=== PATIENT | male | born 1960 | race Caucasian/White ===

== ENCOUNTER 2017-01-30 18:20 | Emergency (ER) | payer BC, OTHER ==
[2017-01-30 18:25] VITALS: BP 124/83
--- NOTE | 2017-01-30 19:30 | RADIOLOGY REPORT (SQ) ---
EXAM DESCRIPTION: ELBOW RIGHT OVER 2 VIEWS COMPLETED DATE/TIME: 01/30/2017 7:18 pm REASON FOR STUDY: pain and swelling COMPARISON: None. NUMBER OF VIEWS: Four views. TECHNIQUE: AP, lateral, and both oblique radiographic images acquired of the right elbow. LIMITATIONS: None. FINDINGS: MINERALIZATION: Normal. BONES: No acute fracture or dislocation. No worrisome bone lesions. JOINT: No effusion. SOFT TISSUES: No soft tissue swelling. No foreign body. OTHER: No other significant finding. IMPRESSION: NEGATIVE STUDY OF THE RIGHT ELBOW. NO RADIOGRAPHIC EVIDENCE OF ACUTE INJURY. TECHNICAL DOCUMENTATION: JOB ID: [id number] [employer]- All Rights Reserved
[2017-01-30] MEDS ORDERED: CLINDAMYCIN HCL 150 MG CAPSULE PO ONE (19:43)
--- NOTE | 2017-01-30 19:51 | ER Document Report ---
ED Extremity Problem, Upper - General Chief Complaint: Elbow Injury Stated Complaint: ELBOW PAIN Time Seen by Provider: 01/30/17 18:47 TRAVEL OUTSIDE OF THE [place] 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 - Related Data Allergies/Adverse Reactions: No Known Allergies Allergy (Unverified 01/30/17 18:25) Past Medical History - Social History Smoking Status: Unknown if Ever Smoked Chew tobacco use (# tins/day): No Frequency of alcohol use: None Drug Abuse: None Family History: Reviewed & Not Pertinent - Past Medical History Cardiac Medical History: Reports: Hx Atrial Fibrillation Pulmonary Medical History: Reports: Hx COPD Renal/ Medical History: Denies: Hx Peritoneal Dialysis Past Surgical History: Reports: Hx Appendectomy, Hx Orthopedic Surgery - right elbow Review of Systems - Review of Systems Constitutional: No symptoms reported Musculoskeletal: See HPI Skin: See HPI -: Yes All other systems reviewed and negative Physical Exam - Vital signs Vitals: Temp Pulse Resp BP Pulse Ox 98.4 F 71 16 124/83 95 01/30/17 18:24 01/30/17 18:24 01/30/17 18:24 01/30/17 18:24 01/30/17 18:24 - General General appearance: Appears well, Alert In distress: None - Cardiovascular Pulses: Normal: Radial Normal capillary refill: Yes - Extremities Arm: Normal, Nontender Elbow: Nontender, Abrasion, Swollen bursa - right elbow. No: Deformity, Dislocation, Ecchymosis, Instability, Joint effusion, Laceration, Limited ROM Forearm: Normal, Nontender - Skin Skin Temperature: Warm Skin Moisture: Dry Skin Color: Erythema - overlying bursa of the right elbow Course - Re-evaluation Re-evalutation: 01/30/17 21:24 Patient is a 56-year-old male is hemodynamic stable, no acute distress afebrile. Presentation today is consistent with bursitis. Given overlying abrasion and erythema will treat with clindamycin and sent aspirate from bursa for culture. Patient educated on signs and symptoms to be aware of indicating return to the emergency department. Patient agrees with plan. Stable for discharge home - Vital Signs Vital signs: Temp Pulse Resp BP Pulse Ox 98.4 F 71 16 124/83 95 01/30/17 18:24 01/30/17 18:24 01/30/17 18:24 01/30/17 18:24 01/30/17 18:24 - Diagnostic Test Radiology reviewed: Image reviewed, Reports reviewed Discharge - Discharge Clinical Impression: Bursitis Qualifiers: Bursitis location: elbow Elbow bursitis location: olecranon bursitis Laterality : right Qualified Code(s): M70.21 - Olecranon bursitis, right elbow Condition: Good Disposition: HOME, SELF-CARE Instructions: Olecranon Bursitis ([facility]) Additional Instructions: Please follow-up with your primary care provider at the end of this coming week for a recheck of your bursitis. Please return to the emergency department with any worsening redness, swelling and inability to move the joint, fever Prescriptions: Clindamycin HCl 450 mg PO TID 7 Days capsule
== END 2017-01-30 20:04 | disposition home or self-care (01) ==
LOC: ER 18:20
DX: M70.21 Olecranon bursitis, right elbow (principal); M79.89 Other specified soft tissue disorders; M25.521 Pain in right elbow
CPT/HCPCS: 87070; 87075; 87077; 87186; 87205; 99283

== ENCOUNTER 2017-03-28 07:40 | Emergency (ER) | payer OTHER, BC ==
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
[2017-03-28 07:49] VITALS: BP 149/90
== END 2017-03-28 08:20 | disposition home or self-care (01) ==
LOC: ER 07:40
DX: S16.1XXA Strain of muscle, fascia and tendon at neck level, initial encounter (principal); M54.2 Cervicalgia; R51 Headache; M25.561 Pain in right knee; V87.7XXA Person injured in collision between other specified motor vehicles (traffic), initial encounter
CPT/HCPCS: 99283

== ENCOUNTER 2017-05-21 06:13 | Emergency (ER) | payer BC, OTHER ==
[2017-05-21 06:56] LABS: ABSOLUTE BASOPHILS # (AUTO) 0.1 10^3/uL (0.0-0.2); ABSOLUTE EOSINOPHILS # (AUTO) 0.2 10^3/uL (0.0-0.6); ABSOLUTE LYMPHOCYTES (AUTO) 1.3 10^3/uL (0.5-4.7); ABSOLUTE MONOCYTES (AUTO) 0.5 10^3/uL (0.1-1.4); ABSOLUTE NEUT (AUTO) 4.6 10^3/uL (1.7-8.2); BASOPHILS % (AUTO) 0.9 % (0-2); EOSINOPHILS % (AUTO) 2.3 % (0-6); HEMOGLOBIN 16.3 g/dL (13.5-17.0); LYMPHOCYTES % (AUTO) 19.4 % (13-45); MEAN CORPUSCULAR HEMOGLOBIN 29.1 pg (27.0-33.4); MEAN CORPUSCULAR HGB CONC 34.1 g/dL (32.0-36.0); MEAN CORPUSCULAR VOLUME 85 fl (80-97); PLATELET COUNT 234 10^3/uL (150-450); RED BLOOD COUNT 5.62 10^6/uL (4.35-5.55); SEGMENTED NEUTROPHILS % (AUTO) 69.4 % (42-78); TOTAL CELLS COUNTED % (AUTO) 100 %; WHITE BLOOD COUNT 6.7 10^3/uL (4.0-10.5)
--- NOTE | 2017-05-21 07:07 | ER Document Report ---
ED General - General Mode of Arrival: Ambulatory Information source: Patient TRAVEL OUTSIDE OF THE [place] IN LAST 30 DAYS: No <CAROLYNN LEDESMA - Last Filed: 05/21/17 07:45> <STEVIE LUCERO - Last Filed: 05/21/17 11:15> <LINDA RICHARDS - Last Filed: 05/21/17 16:29> - General Chief Complaint: Abdominal Pain Stated Complaint: ABDOMINAL PAIN Time Seen by Provider: 05/21/17 06:54 Notes: Patient is a 56 year old male with a history of diverticulosis, Afib, and COPD presents to the emergency department complaining of abdominal pain onset 2 days ago. Patient states when he came home from work 2 days ago he was constipated and noticed blood streaks in the toilet. Patients associated symptoms include diaphoresis, vomiting x1 onset last night, and chills. Patient is currently on Multaq. (CAROLYNN LEDESMA) - Related Data Allergies/Adverse Reactions: No Known Allergies Allergy (Verified 05/21/17 06:13) Past Medical History - General Information source: Patient - Social History Smoking Status: Former Smoker Cigarette use (# per day): No Chew tobacco use (# tins/day): No Smoking Education Provided: No Frequency of alcohol use: None Drug Abuse: Marijuana Family History: Reviewed & Not Pertinent Patient has suicidal ideation: No Patient has homicidal ideation: No - Past Medical History Cardiac Medical History: Reports: Hx Atrial Fibrillation Pulmonary Medical History: Reports: Hx COPD Past Surgical History: Reports: Hx Appendectomy, Hx Orthopedic Surgery - right elbow <CAROLYNN LEDESMA - Last Filed: 05/21/17 07:45> Review of Systems - Review of Systems Constitutional: See HPI, Chills, Diaphoresis EENT: No symptoms reported Cardiovascular: No symptoms reported Respiratory: No symptoms reported Gastrointestinal: See HPI, Abdominal pain, Vomiting, Constipation Genitourinary: No symptoms reported Male Genitourinary: No symptoms reported Musculoskeletal: No symptoms reported Skin: No symptoms reported Hematologic/Lymphatic: No symptoms reported -: Yes All other systems reviewed and negative <CAROLYNN LEDESMA - Last Filed: 05/21/17 07:45> Physical Exam <CAROLYNN LEDESMA - Last Filed: 05/21/17 07:45> <STEVIE LUCERO - Last Filed: 05/21/17 11:15> <LINDA RICHARDS - Last Filed: 05/21/17 16:29> - Vital signs Vitals: Temp Pulse Resp BP Pulse Ox 98.0 F 80 18 125/94 H 96 05/21/17 06:13 05/21/17 06:13 05/21/17 06:13 05/21/17 06:13 05/21/17 06:13 - Notes Notes: GENERAL: Alert, interacts well. No acute distress. HEAD: Normocephalic, atraumatic. EYES: Pupils equal, round, and reactive to light. Extraocular movements intact. ENT: Oral mucosa moist, tongue midline. NECK: Full range of motion. Supple. Trachea midline. LUNGS: Clear to auscultation bilaterally, no wheezes, rales, or rhonchi. No respiratory distress. HEART: Regular rate and rhythm. No murmurs, gallops, or rubs. ABDOMEN: Soft, LLQ and RLQ moderately tender to palpatio, no guarding, rigidity or rebound. Non-distended. Bowel sounds present in all 4 quadrants. EXTREMITIES: Moves all 4 extremities spontaneously. NEUROLOGICAL: Alert and oriented x3. Normal speech. PSYCH: Normal affect, normal mood. SKIN: Warm, dry, normal turgor. No rashes or lesions noted. RECTAL: No hemorrhoids, no gross amount of blood. Liquid like light brown stool. (CAROLYNN LEDESMA) Course - Laboratory Result Diagrams: 05/21/17 06:40 05/21/17 06:40 <CAROLYNN LEDESMA - Last Filed: 05/21/17 07:45> - Laboratory Result Diagrams: 05/21/17 06:40 05/21/17 06:40 <STEVIE LUCERO - Last Filed: 05/21/17 11:15> - Laboratory Result Diagrams: 05/21/17 06:40 05/21/17 06:40 <LINDA RICHARDS - Last Filed: 05/21/17 16:29> - Re-evaluation Re-evalutation: 05/21/17 16:28 CBC unremarkable, chemistries grossly unremarkable, no leukocytosis, urinalysis grossly unremarkable, CT scan shows bowel wall thickening associated with sigmoid diverticulosis, no obvious diverticulitis. I had to leave the care of this patient in the middle of the workup, patient was graciously taken over by Stevie Harris, started antibiotics on this patient as he does have a history of diverticulitis, there is some bowel wall thickening and he is symptomatic. Patient was given antibiotics and discharged to home. (LINDA RICHARDS) - Vital Signs Vital signs: Temp Pulse Resp BP Pulse Ox 98.0 F 70 18 125/75 100 05/21/17 12:24 05/21/17 12:24 05/21/17 12:24 05/21/17 12:24 05/21/17 12:24 - Laboratory Laboratory results interpreted by me: 05/21/17 05/21/17 06:40 06:40 RBC 5.62 H Total Protein 6.1 L Discharge <CAROLYNN LEDESMA - Last Filed: 05/21/17 07:45> <STEVIE LUCERO - Last Filed: 05/21/17 11:15> <LINDA RICHARDS - Last Filed: 05/21/17 16:29> - Discharge Clinical Impression: Diverticulitis Diverticulosis Qualifiers: Diverticulosis site: diverticulosis of large intestine Diverticulosis bleeding : diverticulosis without bleeding Qualified Code(s): K57.30 - Diverticulosis of large intestine without perforation or abscess without bleeding Disposition: HOME, SELF-CARE Instructions: Diverticulitis ([facility]) Additional Instructions: Diverticulitis You have been diagnosed as having diverticulitis. This is an inflammation of a small pouch attached to the colon, called a diverticulum. Many of these small pouches can form on the colon as you get older. They are often caused by constipation. When inflamed or infected, symptoms arise -- usually abdominal pain, constipation or diarrhea, fever, and blood in the stool. Severe diverticulitis may require hospitalization. More mild cases are usually treated with antibiotics and clear liquid diet. As you improve, a diet low in residue (one which forms little stool) is prescribed. When you are better, you should eat a high-fiber diet. Stool softeners ( like Metamucil) are usually recommended. Call the doctor or go to the hospital if there is increasing pain, vomiting , high fever, large amounts of blood passed, or if bowel movements cease. Antibiotics with food, eat yogurt daily to prevent loose stool or take probiotics. advised to return to the ER if any signs or symptoms became worse. Take [id number] Motrin and Tylenol as needed for any fevers or pain. Follow up with primary care within 1-2 days. All questions and concerns answered by this provider. Patient/family states would follow plan of care and agreed to plan of care. Patient was discharged home and off unit without incident. Please excuse any errors in this document was done by dragon dictation. Prescriptions: Ciprofloxacin HCl [Cipro 500 mg Tablet] 500 mg PO BID #20 tablet Metronidazole [Flagyl 500 mg Tablet] 500 mg PO TID 10 Days #30 tablet Scribe Attestation: 05/21/17 16:29 I personally performed the services described in the documentation, reviewed and edited the documentation which was dictated to the scribe in my presence, and it accurately records my words and actions. (LINDA RICHARDS) Scribe Documentation - Scribe Written by Sarthak:: Sarthak Araya, 05/21/2017 07:44 acting as scribe for :: Tao <CAROLYNN LEDESMA - Last Filed: 05/21/17 07:45>
[2017-05-21 07:28] LABS: ALANINE AMINOTRANSFERASE 30 U/L (21-72); ALBUMIN 3.7 g/dL (3.5-5.0); ALKALINE PHOSPHATASE 57 U/L (38-126); ANION GAP 8 (5-19); ASPARTATE AMINO TRANSFERASE 21 U/L (17-59); BILIRUBIN,DIRECT 0.2 mg/dL (0.0-0.4); BILIRUBIN,TOTAL 0.4 mg/dL (0.2-1.3); BLOOD UREA NITROGEN 19 mg/dL (7-20); CALCIUM 9.8 mg/dL (8.4-10.2); CARBON DIOXIDE 25 mmol/L (22-30); CHLORIDE 107 mmol/L (98-107); GLUCOSE 110 mg/dL (75-110); LIPASE 273.2 U/L (23-300); POTASSIUM 4.5 mmol/L (3.6-5.0); SODIUM 140.4 mmol/L (137-145); TOTAL PROTEIN 6.1 g/dL (6.3-8.2)
[2017-05-21 08:28] LABS: AMORPHOUS SEDIMENT,URINE 1+ /HPF; APPEARANCE,URINE TURBID; BILIRUBIN,URINE NEGATIVE (NEGATIVE); COLOR,URINE YELLOW; GLUCOSE, URINE NEGATIVE (NEGATIVE); KETONES,URINE NEGATIVE (NEGATIVE); LEUKOCYTE ESTERASE,URINE NEGATIVE (NEGATIVE); NITRITE,URINE NEGATIVE (NEGATIVE); PROTEIN,URINE NEGATIVE (NEGATIVE); URINE SPECIFIC GRAVITY 1.023; UROBILINOGEN,URINE NEGATIVE mg/dL (<2.0)
--- NOTE | 2017-05-21 10:44 | RADIOLOGY REPORT (SQ) ---
EXAM DESCRIPTION: CT ABD/PELVIS WITH IV ORAL COMPLETED DATE/TIME: 05/21/2017 10:13 am REASON FOR STUDY: LLQ and RLQ pain, h/o perf'd diverticulitis COMPARISON: None. TECHNIQUE: CT scan of the abdomen and pelvis performed with intravenous and oral contrast using wilner maxx scanning technique with dynamic intravenous contrast injection. Images reviewed with lung, soft t issue, and bone windows. Reconstructed coronal and sagittal MPR images reviewed. Delayed images for e valuation of the urinary system also acquired. All images stored on PACS. All CT scanners at this facility use dose modulation, iterative reconstruction, and/or weight based d osing when appropriate to reduce radiation dose to as low as reasonably achievable (ALARA). [facility]: Dose Right [facility]: CareDose [facility]: Dose Right [facility]: Teradose 4D [facility]: [employer] CONTRAST TYPE AND DOSE: contrast/concentration: Isovue 370.00 mg/ml; Total Contrast Delivered: 89.0 ml; Total Saline Delivered: 70.0 ml RENAL FUNCTION: Not recorded by technologist. RADIATION DOSE: CT Rad equipment meets quality standard of care and radiation dose reduction techniq ues were employed. CTDIvol: 8.9 - 13.4 mGy. DLP: 1142 mGy-cm. . LIMITATIONS: None. FINDINGS: LOWER CHEST: No significant findings. No nodules or infiltrates. LIVER: Normal size. No masses. No dilated ducts. SPLEEN: Normal size. No focal lesions. PANCREAS: No masses. No significant calcifications. No adjacent inflammation or peripancreatic fluid collections. Pancreatic duct not dilated. GALLBLADDER: No identified stones by CT criteria. No inflammatory changes to suggest cholecystitis. ADRENAL GLANDS: No significant masses or asymmetry. RIGHT KIDNEY AND URETER: No solid masses. No significant calcifications. No hydronephrosis or hyd roureter. LEFT KIDNEY AND URETER: No solid masses. No significant calcifications. No hydronephrosis or hydr oureter. AORTA AND VESSELS: No aneurysm. No dissection. Renal arteries, SMA, celiac without stenosis. RETROPERITONEUM: No retroperitoneal adenopathy, hemorrhage or masses. BOWEL AND PERITONEAL CAVITY: Bowel wall thickening sigmoid colon. Multiple sigmoid diverticula. No inflammatory changes. No ascites or free air. APPENDIX: Surgically absent. PELVIS: No significant masses. Normal bladder. No free fluid. ABDOMINAL WALL: No masses. No hernias. BONES: No significant or acute findings. OTHER: No other significant finding. IMPRESSION: Bowel wall thickening associated with sigmoid diverticulosis. No obvious diverticulitis . TECHNICAL DOCUMENTATION: JOB ID: [id number] Quality ID # [id number]: Final reports with documentation of one or more dose reduction techniques (e.g., Au tomated exposure control, adjustment of the mA and/or kV according to patient size, use of iterative reconstruction technique) 2010 [employer]- All Rights Reserved
[2017-05-21 12:25] VITALS: BP 125/75
== END 2017-05-21 12:25 | disposition home or self-care (01) ==
LOC: ER 06:13
DX: K57.30 Diverticulosis of large intestine without perforation or abscess without bleeding (principal); K57.92 Diverticulitis of intestine, part unspecified, without perforation or abscess without bleeding; R10.9 Unspecified abdominal pain; I48.91 Unspecified atrial fibrillation; J44.9 Chronic obstructive pulmonary disease, unspecified; K59.00 Constipation, unspecified; Z87.891 Personal history of nicotine dependence
CPT/HCPCS: 36415; 74177; 80053; 81001; 82272; 83690; 85025; 99284

== ENCOUNTER 2018-01-29 16:00 | Emergency (ER) | payer BC, OTHER ==
[2018-01-29] MEDS ORDERED: DILTIAZEM HCL INJ 25 MG/5 ML VIAL IV ONE (16:35)
--- NOTE | 2018-01-29 16:35 | ER Document Report ---
ED Medical Screen (RME) - General Chief Complaint: Chest Pain Stated Complaint: HEARTRATE ISSUE, CHEST PAIN, SOB Time Seen by Provider: 01/29/18 16:34 Notes: 57-year-old male to the emergency department for evaluation of tachycardia. Patient has had a history of atrial fibrillation recently. Was started on Multitak and aspirin. Not on any blood thinners. 2 hours ago felt his heart began to flutter. Decided to come here. Has had this happen several times and was able to be converted in the emergency department with medications. Some shortness of breath and some anxiety at this time I have greeted and performed a rapid initial assessment of this patient. A comprehensive ED assessment and evaluation of the patient, analysis of test results and completion of the medical decision making process will be conducted by additional ED providers. TRAVEL OUTSIDE OF THE [place] IN LAST 30 DAYS: No - Related Data Allergies/Adverse Reactions: No Known Allergies Allergy (Verified 01/29/18 16:03) Past Medical History - Past Medical History Cardiac Medical History: Reports: Hx Atrial Fibrillation Pulmonary Medical History: Reports: Hx COPD Renal/ Medical History: Denies: Hx Peritoneal Dialysis Past Surgical History: Reports: Hx Appendectomy, Hx Orthopedic Surgery - right elbow Physical Exam - Vital signs Vitals: Temp Pulse Resp BP Pulse Ox 97.4 F 80 18 114/79 98 01/29/18 16:15 01/29/18 16:15 01/29/18 16:15 01/29/18 16:15 01/29/18 16:15 Course - Vital Signs Vital signs: Temp Pulse Resp BP Pulse Ox 97.4 F 80 18 114/79 98 01/29/18 16:15 01/29/18 16:15 01/29/18 16:15 01/29/18 16:15 01/29/18 16:15
[2018-01-29 17:05] LABS: ABSOLUTE BASOPHILS # (AUTO) 0.1 10^3/uL (0.0-0.2); ABSOLUTE EOSINOPHILS # (AUTO) 0.1 10^3/uL (0.0-0.6); ABSOLUTE LYMPHOCYTES (AUTO) 1.8 10^3/uL (0.5-4.7); ABSOLUTE MONOCYTES (AUTO) 0.5 10^3/uL (0.1-1.4); ABSOLUTE NEUT (AUTO) 4.9 10^3/uL (1.7-8.2); BASOPHILS % (AUTO) 0.7 % (0-2); EOSINOPHILS % (AUTO) 1.8 % (0-6); HEMATOCRIT 46.2 % (37.9-51.0); LYMPHOCYTES % (AUTO) 24.4 % (13-45); MEAN CORPUSCULAR HEMOGLOBIN 29.3 pg (27.0-33.4); MEAN CORPUSCULAR HGB CONC 34.6 g/dL (32.0-36.0); MEAN CORPUSCULAR VOLUME 85 fl (80-97); MONOCYTES % (AUTO) 6.8 % (3-13); PLATELET COUNT 243 10^3/uL (150-450); RED BLOOD COUNT 5.44 10^6/uL (4.35-5.55); RED CELL DISTRIBUTION WIDTH 13.9 % (11.5-14.0); SEGMENTED NEUTROPHILS % (AUTO) 66.3 % (42-78); TOTAL CELLS COUNTED % (AUTO) 100 %; WHITE BLOOD COUNT 7.4 10^3/uL (4.0-10.5)
[2018-01-29] MEDS ORDERED: DILTIAZEM HCL/D5W 125 MG/125 ML RTUINJ IV PRN (17:31)
--- NOTE | 2018-01-29 17:31 | ER Document Report ---
ED General - General Chief Complaint: Chest Pain Stated Complaint: HEARTRATE ISSUE, CHEST PAIN, SOB Time Seen by Provider: 01/29/18 16:34 Mode of Arrival: Ambulatory Information source: Patient Notes: 57-year-old man with a history of A. fib presents to the emergency room with palpitations and lightheadedness consistent with A. fib. He states that most of the time is in a sinus rhythm. He does take Dronedarone for rhythm recall control. He is on daily aspirin. His other medicines and gabapentin, Nexium. TRAVEL OUTSIDE OF THE [place] IN LAST 30 DAYS: No - HPI Onset: Just prior to arrival Onset/Duration: Sudden Quality of pain: No pain Severity: None Pain Level: Denies Associated symptoms: denies: Chest pain, Shortness of breath Exacerbated by: Denies Relieved by: Denies Similar symptoms previously: Yes Recently seen / treated by doctor: No - Related Data Allergies/Adverse Reactions: No Known Allergies Allergy (Verified 01/29/18 16:03) Past Medical History - General Information source: Patient - Social History Smoking Status: Never Smoker Cigarette use (# per day): No Chew tobacco use (# tins/day): No Frequency of alcohol use: None Lives with: Family Family History: Reviewed & Not Pertinent Patient has suicidal ideation: No Patient has homicidal ideation: No - Past Medical History Cardiac Medical History: Reports: Hx Atrial Fibrillation Pulmonary Medical History: Reports: Hx COPD Neurological Medical History: Reports: None Endocrine Medical History: Reports: None Renal/ Medical History: Reports: None. Denies: Hx Peritoneal Dialysis Malignancy Medical History: Reports None GI Medical History: Reports: None Musculoskeletal Medical History: Reports None Skin Medical History: Reports None Psychiatric Medical History: Reports: None Traumatic Medical History: Reports: None Infectious Medical History: Reports: None Past Surgical History: Reports: Hx Appendectomy, Hx Orthopedic Surgery - right elbow Review of Systems - Review of Systems Constitutional: denies: Chills, Fever EENT: No symptoms reported Cardiovascular: See HPI Respiratory: No symptoms reported Gastrointestinal: No symptoms reported Genitourinary: No symptoms reported Male Genitourinary: No symptoms reported Musculoskeletal: No symptoms reported Skin: No symptoms reported Hematologic/Lymphatic: No symptoms reported Neurological/Psychological: No symptoms reported Physical Exam - Vital signs Vitals: Temp Pulse Resp BP Pulse Ox 97.4 F 80 18 114/79 98 01/29/18 16:15 09/22/18 16:15 01/29/18 16:15 01/29/18 16:15 01/29/18 16:15 Notes: Physical exam: GENERAL: The 57-year-old man, alert and oriented 3, no acute distress. HEAD: Atraumatic, normocephalic. EYES: Pupils equal round and reactive to light, extraocular movements intact, sclera anicteric, conjunctiva are normal. ENT: TMs normal, nares patent, oropharynx clear without exudates. Moist mucous membranes. NECK: Normal range of motion, supple without obvious mass or JVD. LUNGS: Breath sounds clear to auscultation bilaterally and equal. No wheezes rales or rhonchi. HEART: Tachycardic, irregularly irregular ABDOMEN: Soft, normoactive bowel sounds. No tenderness to palpation. No guarding, no rebound. No masses appreciated. EXTREMITIES: Normal range of motion, no pitting or edema. No clubbing or cyanosis. NEUROLOGICAL: Cranial nerves II through XII grossly intact. Normal speech, moving all extremities. PSYCH: Normal mood, normal affect. SKIN: Warm, Dry, normal turgor, no rashes or lesions noted. Course - Re-evaluation Re-evalutation: 01/30/18 00:29 Patient was treated with IV Cardizem, IV Cardizem drip. He did have spontaneous conversion to normal sinus rhythm while in the. Patient was asymptomatic. Repeat EKG showed sinus rhythm with a ventricular rate of 65 and a normal QTc corrected interval. Patient was discharged home and advised to follow-up with his ticker wirer and continue current medicines. - Vital Signs Vital signs: Temp Pulse Resp BP Pulse Ox 97.4 F 80 21 H 110/72 98 01/29/18 16:15 01/29/18 16:15 01/29/18 20:31 01/29/18 20:31 01/29/18 20:31 - Laboratory Result Diagrams: 01/29/18 16:55 01/29/18 16:55 Laboratory results interpreted by me: 01/29/18 16:55 Chloride 113 H Carbon Dioxide 21 L BUN 25 H Glucose 132 H Direct Bilirubin 0.5 H - EKG Interpretation by Me Rhythm: A.Fib - A. fib with a rapid ventricular rate, QTC 502. Repeat EKG showing normal sinus rhythm with a ventricular rate of 65 with a normal QTc interval Discharge - Discharge Clinical Impression: Atrial fibrillation with rapid ventricul Condition: Stable Disposition: HOME, SELF-CARE Additional Instructions: As we discussed, you did convert into normal sinus rhythm. I recommend you follow-up with your ticker wirer. Bring a copy of today's labs with you when you go to that appointment. Continue your current medicines. Return to the emergency room for any chest pain, shortness of breath, worsening palpitations or any concerns or getting worse.
[2018-01-29 17:40] LABS: ALANINE AMINOTRANSFERASE 29 U/L (21-72); ALBUMIN 3.8 g/dL (3.5-5.0); ALKALINE PHOSPHATASE 53 U/L (38-126); ANION GAP 7 (5-19); ASPARTATE AMINO TRANSFERASE 23 U/L (17-59); BILIRUBIN,DIRECT 0.5 mg/dL (0.0-0.4); BILIRUBIN,TOTAL 0.7 mg/dL (0.2-1.3); BLOOD UREA NITROGEN 25 mg/dL (7-20); CALCIUM 9.3 mg/dL (8.4-10.2); CARBON DIOXIDE 21 mmol/L (22-30); CHLORIDE 113 mmol/L (98-107); GLUCOSE 132 mg/dL (75-110); POTASSIUM 3.9 mmol/L (3.6-5.0); SODIUM 141.2 mmol/L (137-145); TOTAL PROTEIN 6.7 g/dL (6.3-8.2)
[2018-01-29] MEDS ORDERED: NORMAL SALINE 1000 ML 1,000 ML IV ONE (20:00)
--- NOTE | 2018-01-29 20:05 | EKG REPORT ---
SEVERITY:- ABNORMAL ECG - ATRIAL FIBRILLATION, V-RATE 92-174 PROLONGED QT INTERVAL : Confirmed by: Jayla Santana MD 29-Jan-2018 20:04:37
[2018-01-29] MEDS ORDERED: POTASSIUM CHLORIDE 10 MEQ CAPSULE.ER PO ONE (20:08)
[2018-01-29 20:54] VITALS: BP 110/72
--- NOTE | 2018-01-30 14:32 | EKG REPORT ---
SEVERITY:- NORMAL ECG - SINUS RHYTHM : Confirmed by: Jayla Santana MD 30-Jan-2018 14:31:51
== END 2018-01-29 20:39 | disposition home or self-care (01) ==
LOC: ER 16:00
DX: I48.91 Unspecified atrial fibrillation (principal)
CPT/HCPCS: 93005; 99285; 96374; 36415; 83735; 85025; 80053; 84484; 93010; J3490

== ENCOUNTER 2018-07-01 10:00 | Emergency (ER) | payer BC ==
[2018-07-01] MEDS ORDERED: NORMAL SALINE 1000 ML 1,000 ML IV ONE (10:31)
[2018-07-01] MEDS ORDERED: DILTIAZEM HCL INJ 25 MG/5 ML VIAL IV ONE ×2 (10:31→11:56)
[2018-07-01] MEDS ORDERED: DILTIAZEM HCL/D5W 125 MG/125 ML RTUINJ IV PRN (10:32)
[2018-07-01 10:49] LABS: ABSOLUTE BASOPHILS # (AUTO) 0.1 10^3/uL (0.0-0.2); ABSOLUTE LYMPHOCYTES (AUTO) 1.2 10^3/uL (0.5-4.7); ABSOLUTE MONOCYTES (AUTO) 0.5 10^3/uL (0.1-1.4); ABSOLUTE NEUT (AUTO) 2.7 10^3/uL (1.7-8.2); BASOPHILS % (AUTO) 1.2 % (0-2); EOSINOPHILS % (AUTO) 0.3 % (0-6); HEMOGLOBIN 17.4 g/dL (13.5-17.0); LYMPHOCYTES % (AUTO) 25.9 % (13-45); MEAN CORPUSCULAR HEMOGLOBIN 29.2 pg (27.0-33.4); MEAN CORPUSCULAR HGB CONC 34.2 g/dL (32.0-36.0); MEAN CORPUSCULAR VOLUME 85 fl (80-97); MONOCYTES % (AUTO) 11.9 % (3-13); PLATELET COUNT 216 10^3/uL (150-450); RED BLOOD COUNT 5.97 10^6/uL (4.35-5.55); SEGMENTED NEUTROPHILS % (AUTO) 60.7 % (42-78); TOTAL CELLS COUNTED % (AUTO) 100 %; WHITE BLOOD COUNT 4.5 10^3/uL (4.0-10.5)
[2018-07-01 11:06] LABS: ALANINE AMINOTRANSFERASE 34 U/L (21-72); ALKALINE PHOSPHATASE 55 U/L (38-126); ANION GAP 10 (5-19); ASPARTATE AMINO TRANSFERASE 56 U/L (17-59); BILIRUBIN,DIRECT 0.3 mg/dL (0.0-0.4); BILIRUBIN,TOTAL 0.5 mg/dL (0.2-1.3); BLOOD UREA NITROGEN 21 mg/dL (7-20); CALCIUM 8.8 mg/dL (8.4-10.2); CARBON DIOXIDE 23 mmol/L (22-30); CHLORIDE 110 mmol/L (98-107); CREATINE KINASE 306 U/L (55-170); GLUCOSE 114 mg/dL (75-110); POTASSIUM 3.3 mmol/L (3.6-5.0); SODIUM 142.8 mmol/L (137-145); TOTAL PROTEIN 6.7 g/dL (6.3-8.2)
[2018-07-01 12:03] LABS: APPEARANCE,URINE CLEAR; BILIRUBIN,URINE NEGATIVE (NEGATIVE); COLOR,URINE YELLOW; GLUCOSE, URINE NEGATIVE (NEGATIVE); KETONES,URINE 20 mg/dL (NEGATIVE); LEUKOCYTE ESTERASE,URINE NEGATIVE (NEGATIVE); NITRITE,URINE NEGATIVE (NEGATIVE); PROTEIN,URINE NEGATIVE (NEGATIVE); URINE SPECIFIC GRAVITY 1.017; UROBILINOGEN,URINE NEGATIVE mg/dL (<2.0)
--- NOTE | 2018-07-01 13:21 | EKG REPORT ---
SEVERITY:- ABNORMAL ECG - ATRIAL FIBRILLATION, V-RATE 112-[address] DEPRESSION, DIFFUSE LEADS BORDERLINE PROLONGED QT INTERVAL : Confirmed by: Saul Norman MD 01-Jul-2018 13:20:46
[2018-07-01] MEDS ORDERED: RINGERS SOLUTION,LACTATED 1,000 ML IV ONE (13:57)
[2018-07-01 15:03] VITALS: BP 122/73
--- NOTE | 2018-07-01 19:32 | EKG REPORT ---
SEVERITY:- NORMAL ECG - SINUS RHYTHM : Confirmed by: Saul Norman MD 01-Jul-2018 19:32:13
--- NOTE | 2018-07-15 11:48 | ER Document Report ---
Entered by JESSICA ARMIJO SCRIBE 07/01/18 1023 Acting as scribe for:ALEK GAY MD ED Cardiac - General Chief Complaint: Palpitations Stated Complaint: POSSIBLE AFIB Time Seen by Provider: 07/01/18 10:22 Primary Care Provider: KAE RUSSO PA-C [Primary Care Provider] - Follow up as needed DONNIE MARKHAM MD [[facility]] - Follow up as needed Mode of Arrival: Ambulatory Information source: Patient Notes: 58-year-old male with atrial fibrillation on dronedarone and daily baby aspirin that presents to the emergency department today with complaints of a heart racing sensation which began at about 0945 this morning. Patient states he has been evaluated for A. fib with RVR several times in the past. Patient states he has been treated with Cardizem with success in the past. Patient does mention that he started Tamiflu yesterday because he began having flulike symptoms and his had tested positive for the flu recently, no flu test was done on him. at the bedside does mention the patient has had decreased p.o. intake secondary to not feeling well. TRAVEL OUTSIDE OF THE [place] IN LAST 30 DAYS: No - Related Data Allergies/Adverse Reactions: No Known Allergies Allergy (Verified 07/01/18 10:04) Past Medical History - General Information source: Patient, [facility] Records - Social History Smoking Status: Former Smoker Cigarette use (# per day): No Frequency of alcohol use: None Drug Abuse: None Lives with: Family Family History: Reviewed & Not Pertinent - Past Medical History Cardiac Medical History: Reports: Hx Atrial Fibrillation Pulmonary Medical History: Reports: Hx COPD Past Surgical History: Reports: Hx Appendectomy, Hx Orthopedic Surgery - right elbow Review of Systems - Review of Systems Constitutional: No symptoms reported EENT: See HPI, Other - throat closing sensation Cardiovascular: See HPI, Palpitations, Heart racing. denies: Chest pain Respiratory: No symptoms reported Gastrointestinal: No symptoms reported Genitourinary: No symptoms reported Male Genitourinary: No symptoms reported Musculoskeletal: No symptoms reported Skin: No symptoms reported Hematologic/Lymphatic: No symptoms reported Neurological/Psychological: No symptoms reported -: Yes All other systems reviewed and negative Physical Exam - Vital signs Vitals: Resp Pulse Ox 16 95 07/01/18 10:23 07/01/18 10:23 - Notes Notes: Physical Exam: General: Alert, appears a bit anxious. HEENT: Normocephalic. Atraumatic. PERRL. Extraocular movements intact. Orophary nx clear. Nasal congestion. Airway is patent. Neck: Supple. Non-tender. Respiratory: No respiratory distress. Coarse breath sounds bilaterally consistent with smoking history. Cardiovascular: Tachycardic, irregularly irregular. When getting stuck for an IV, on the bedside monitor the patient's heart rate is still irregular but drops into the 70s and 80s, appears to be in Atrialflutter, but quickly climbed back up into atrial fibrillation with rapid ventricular response into the 140s-160s. Abdominal: Normal Inspection. Non-tender. No distension. Normal Bowel Sounds. Back: Non-tender. No deformity or step off. Extremities: Moves all four extremities. Upper extremities: Normal inspection. Normal ROM. Lower extremities: Normal inspection. No edema. Normal ROM. Neurological: Normal cognition. AAOx4. Normal speech. Psychological: Normal affect. Normal Mood. Skin: Warm. Dry. Normal color. Course - Re-evaluation Re-evalutation: 07/01/18 13:58 The patient has been in a normal sinus rhythm for a good while now. An EKG was done to confirm the normal sinus rhythm. His Cardizem will be turned off and he will be watched for a while to be sure he stays in the normal sinus rhythm. 07/01/18 14:50 The patient has been off the Cardizem for nearly 1 hour and remained in this rhythm. He will be discharged home to follow-up with his primary care provider or his supervisor carding. He will continue taking his Multak. - Vital Signs Vital signs: Temp Pulse Resp BP Pulse Ox 98 F 22 H 122/73 96 07/01/18 15:00 07/01/18 15:01 07/01/18 15:00 07/01/18 15:01 - Laboratory Result Diagrams: 07/01/18 10:30 07/01/18 10:30 Laboratory results interpreted by me: 07/01/18 07/01/18 07/01/18 10:30 10:30 11:38 RBC 5.97 H Hgb 17.4 H Potassium 3.3 L Chloride 110 H BUN 21 H Glucose 114 H Creatine Kinase 306 H Urine Ketones 20 H Urine Blood SMALL H - EKG Interpretation by Me EKG shows normal: Sinus rhythm, Roy, Intervals, ST-T Waves. abnormal: QRS Complexes - Abnormal R progression Rate: Tachycardia - 129 Rhythm: A.Fib Roy/QRS: Right axis deviation P Waves: LAE Critical Care Note - Critical Care Note Total time excluding time spent on procedures (mins): 35 Discharge - Discharge Clinical Impression: Paroxysmal atrial fibrillation with rapid ventricular response Condition: Stable Disposition: HOME, SELF-CARE Additional Instructions: Atrial Fibrillation Atrial fibrillation is an abnormal heart rhythm, caused by irregular electrical circuits in the upper heart chamber. It can be caused by heart valve disease, hardening of the arteries, or metabolic problems such as thyroid disease, or may occur without a clear cause. Atrial fibrillation may occur only occasionally, or may be chronic. Atrial fibrillation often results in a very fast heart rate, with palpitations, lightheadedness, and shortness of breath. Treatment is to slow the abnormally fast rate, and to convert the rhythm back to normal, if possible. Many patients stay in atrial fibrillation for years without symptoms or complications. Your doctor will decide whether you can be converted back to a normal heart rhythm. Contact the doctor or emergency medical system at once if you develop chest pain, shortness of breath, or severe lightheadedness, or if you develop any disturbance of consciousness, problems with speech, or localized weakness. You converted back to normal sinus rhythm after you had been on the Cardizem for a while. You should continue taking your Multak. Your potassium level was a little low, increase potassium in your diet with foods that are rich in potassium, such as bananas. Follow-up with your supervisor carding next week to discuss your episode of atrial f ibrillation with rapid ventricular rate to see if he wants to make any medication adjustments. RETURN TO THE EMERGENCY ROOM IF ANY NEW OR WORSENING SYMPTOMS. Referrals: KAE RUSSO PA-C [Primary Care Provider] - Follow up as needed DONNIE MARKHAM MD [[facility]] - Follow up as needed Scribe Attestation: 07/01/18 12:10 I personally performed the services described in the documentation, reviewed and edited the documentation which was dictated to the scribe in my presence, and it accurately records my words and actions. I personally performed the services described in the documentation, reviewed and edited the documentation which was dictated to the scribe in my presence, and it accurately records my words and actions.
== END 2018-07-01 15:05 | disposition home or self-care (01) ==
LOC: ER 10:00
DX: I48.0 Paroxysmal atrial fibrillation (principal); R00.2 Palpitations; J44.9 Chronic obstructive pulmonary disease, unspecified; Z79.82 Long term (current) use of aspirin
CPT/HCPCS: 93005; 96376; 99285; 96361; 96365; 96366; 36415; 82550; 85025; 80053; 81001; 84484; 93010; J3490 ×2; J7030; J7120

== ENCOUNTER 2018-07-03 15:05 | Observation (INO) | payer BC ==
[2018-07-03] MEDS ORDERED: DILTIAZEM HCL/D5W 125 MG/125 ML RTUINJ IV PRN (15:18)
[2018-07-03] MEDS ORDERED: DILTIAZEM HCL INJ 25 MG/5 ML VIAL IV ONE ×2 (15:18→15:58)
--- NOTE | 2018-07-03 15:19 | ER Document Report ---
ED Cardiac - General Chief Complaint: Chest Pain Stated Complaint: CHEST PAIN Time Seen by Provider: 07/03/18 15:17 Notes: 58-year-old male to the emergency department chief complaint of heart racing. Patient has a history of atrial fibrillation. Was seen here earlier this week for the same. Made it to triage and then passed out while in triage. Patient brought immediately back to trauma 2 patient was back awake. Was complaining of some chest pain. Heart rate noted to be in the 160s and irregular. Stat IV established. Patient states that he is currently on Multitak. Earlier in the week he was seen and was able to be discharged. TRAVEL OUTSIDE OF THE [place] IN LAST 30 DAYS: No - HPI Patient complains to provider of: Chest pain, Palpitations, Shortness of breath Is the pain a: Chronic problem Chest pain location: Substernal Quality of pain: Intermittent Severity now: Severe Severity at worst: Moderate Pain level currently: 0 Cardiac risk factors: None Associated symptoms: Lightheaded, Shortness of breath, Syncope - Related Data Allergies/Adverse Reactions: No Known Allergies Allergy (Verified 07/01/18 10:04) Past Medical History - General Information source: Patient - Social History Smoking Status: Never Smoker Frequency of alcohol use: None Drug Abuse: None Lives with: Spouse/Significant other Family History: Reviewed & Not Pertinent - Past Medical History Cardiac Medical History: Reports: Hx Atrial Fibrillation Pulmonary Medical History: Reports: Hx COPD Renal/ Medical History: Denies: Hx Peritoneal Dialysis Past Surgical History: Reports: Hx Appendectomy, Hx Orthopedic Surgery - right elbow Review of Systems - Review of Systems Notes: Constitutional: denies: Chills, Diaphoresis, Fever, Malaise, Weakness EENT: denies: Eye discharge, Blurred vision, Tearing, Double vision, Nose congestion, Nose discharge, Throat swelling, Mouth pain Cardiovascular: Tachycardia, A. fib with RVR, syncope, chest pain all of these are reported. Respiratory: denies: Cough, Hurts to breathe, Wheezing, Shortness of breath Gastrointestinal: denies: Abdominal pain, Diarrhea, Nausea, Vomiting, Black stools, bright red blood in stool Genitourinary: denies: Burning, Dysuria, Discharge, Frequency, Flank pain, Hematuria Musculoskeletal: denies: Joint pain, Joint swelling, Muscle pain, Muscle stiffness, back pain Hematologic/Lymphatic: denies: Anemia, Easy bleeding, Easy bruising, Blood clots Neurological/Psychological: denies: Confusion, Dementia, Depression, Loss of consciousness Skin: No lesions, no masses, no skin breakdown, no abscesses Physical Exam - Vital signs Vitals: Pulse Ox 98 07/03/18 15:11 Interpretation: Tachycardic - General General appearance: Appears well, Alert - HEENT Head: Normocephalic, Atraumatic Eyes: Normal Pupils: PERRL - Respiratory Respiratory status: No respiratory distress Chest status: Nontender Breath sounds: Normal Chest palpation: Normal - Cardiovascular Rhythm: Tachycardia Heart sounds: Normal auscultation Murmur: No - Abdominal Inspection: Normal Distension: No distension Bowel sounds: Normal Tenderness: Nontender Organomegaly: No organomegaly - Back Back: Normal, Nontender - Extremities General upper extremity: Normal inspection, Nontender, Normal color, Normal ROM, Normal temperature General lower extremity: Normal inspection, Nontender, Normal color, Normal ROM, Normal temperature. No: Joni's sign - Neurological Neuro grossly intact: Yes Cognition: Normal Orientation: AAOx4 Johanna Coma Scale Eye Opening: Spontaneous Hickman Coma Scale Verbal: Oriented Hickman Coma Scale Motor: Obeys Commands Johanna Coma Scale Total: 15 Speech: Normal Motor strength normal: LUE, RUE, LLE, RLE Sensory: Normal - Psychological Associated symptoms: Normal affect, Normal mood - Skin Skin Temperature: Warm Skin Moisture: Dry Skin Color: Normal Course - Re-evaluation Re-evalutation: 07/03/18 17:09 Laboratory 07/03/18 07/03/18 07/03/18 15:14 15:14 15:14 WBC 5.3 RBC 6.47 H Hgb 19.0 H Hct 55.2 H MCV 85 MCH 29.4 MCHC 34.5 RDW 13.8 Plt Count 249 Seg Neutrophils % 38.4 L Lymphocytes % 45.4 H Monocytes % 12.4 Eosinophils % 1.4 Basophils % 2.4 H Absolute Neutrophils 2.0 Absolute Lymphocytes 2.4 Absolute Monocytes 0.7 Absolute Eosinophils 0.1 Absolute Basophils 0.1 Sodium Cancelled Potassium Cancelled Chloride Cancelled Carbon Dioxide Cancelled Anion Gap Cancelled BUN Cancelled Creatinine Cancelled Est GFR ( Amer) Cancelled Est GFR (Non-Af Amer) Cancelled Glucose Cancelled Calcium Cancelled Magnesium Cancelled Total Bilirubin Cancelled Direct Bilirubin Cancelled Neonat Total Bilirubin Cancelled Neonat Direct Bilirubin Cancelled Neonat Indirect Bili Cancelled AST Cancelled ALT Cancelled Alkaline Phosphatase Cancelled Creatine Kinase Cancelled CK-MB (CK-2) Cancelled Troponin I Cancelled NT-Pro-B Natriuret Pep Cancelled Total Protein Cancelled Albumin Cancelled 07/03/18 07/03/18 15:44 15:44 WBC RBC Hgb Hct MCV MCH MCHC RDW Plt Count Seg Neutrophils % Lymphocytes % Monocytes % Eosinophils % Basophils % Absolute Neutrophils Absolute Lymphocytes Absolute Monocytes Absolute Eosinophils Absolute Basophils Sodium 142.9 Potassium 3.8 Chloride 112 H Carbon Dioxide 20 L Anion Gap 11 BUN 16 Creatinine 0.74 Est GFR ( Amer) > 60 Est GFR (Non-Af Amer) > 60 Glucose 122 H Calcium 9.2 Magnesium 1.9 Total Bilirubin 0.5 Direct Bilirubin 0.2 Neonat Total Bilirubin Not Reportable Neonat Direct Bilirubin Not Reportable Neonat Indirect Bili Not Reportable AST 34 ALT 40 Alkaline Phosphatase 53 Creatine Kinase 118 CK-MB (CK-2) 0.65 Troponin I < 0.012 NT-Pro-B Natriuret Pep 192 Total Protein 6.3 Albumin 3.9 Chest X-Ray 07/03/18 15:18 IMPRESSION: NO ACUTE FINDINGS. With symptomatic syncope with A. fib with RVR. Patient seen immediately on arrival. Diltiazem bolus given followed by max drip at 15. Patient in and out of A. fib with RVR. Blood pressure drops of fluid boluses x2 had to be given. Patient currently having some mild chest pain but cardiac labs initially are negative. At this time will consult with hospitalist for admission. - Vital Signs Vital signs: Temp Pulse Resp BP Pulse Ox 98 F 70 16 101/61 96 07/03/18 18:00 07/03/18 22:31 07/03/18 18:31 07/03/18 22:31 07/03/18 22:31 - Laboratory Result Diagrams: 07/03/18 15:14 07/03/18 15:44 Laboratory results interpreted by me: 07/03/18 07/03/18 15:14 15:44 RBC 6.47 H Hgb 19.0 H Hct 55.2 H Seg Neutrophils % 38.4 L Lymphocytes % 45.4 H Basophils % 2.4 H Chloride 112 H Carbon Dioxide 20 L Glucose 122 H - EKG Interpretation by Me Additional EKG results interpreted by me: 07/03/18 17:08 Patient has A. fib with RVR with a heart rate of 168. No signs of significant ST segment elevation or depression. Repeat EKG with normal sinus rhythm with a heart rate of 76. A few occasional PVCs. No significant signs of ischemia. Critical Care Note - Critical Care Note Total time excluding time spent on procedures (mins): 45 Comments: Tachycardia, hypotension, IV medication, consultation with specialist, coordination of care. Discharge - Discharge Clinical Impression: Atrial fibrillation with rapid ventricular response Syncope Qualifiers: Syncope type: unspecified Qualified Code(s): R55 - Syncope and collapse Condition: Good Disposition: ADMITTED INPATIENT Admitting Provider: Hospitalist Unit Admitted: BETH Rucker
[2018-07-03 15:29] LABS: ABSOLUTE BASOPHILS # (AUTO) 0.1 10^3/uL (0.0-0.2); ABSOLUTE EOSINOPHILS # (AUTO) 0.1 10^3/uL (0.0-0.6); ABSOLUTE LYMPHOCYTES (AUTO) 2.4 10^3/uL (0.5-4.7); ABSOLUTE MONOCYTES (AUTO) 0.7 10^3/uL (0.1-1.4); BASOPHILS % (AUTO) 2.4 % (0-2); EOSINOPHILS % (AUTO) 1.4 % (0-6); LYMPHOCYTES % (AUTO) 45.4 % (13-45); MEAN CORPUSCULAR HEMOGLOBIN 29.4 pg (27.0-33.4); MEAN CORPUSCULAR HGB CONC 34.5 g/dL (32.0-36.0); MEAN CORPUSCULAR VOLUME 85 fl (80-97); MONOCYTES % (AUTO) 12.4 % (3-13); RED BLOOD COUNT 6.47 10^6/uL (4.35-5.55); RED CELL DISTRIBUTION WIDTH 13.8 % (11.5-14.0); SEGMENTED NEUTROPHILS % (AUTO) 38.4 % (42-78); TOTAL CELLS COUNTED % (AUTO) 100 %; WHITE BLOOD COUNT 5.3 10^3/uL (4.0-10.5)
[2018-07-03] MEDS ORDERED: NORMAL SALINE 1000 ML 1,000 ML IV ONE (15:31)
--- NOTE | 2018-07-03 15:55 | EKG REPORT ---
SEVERITY:- BORDERLINE ECG - SINUS RHYTHM VENTRICULAR PREMATURE COMPLEX CONSIDER RIGHT VENTRICULAR HYPERTROPHY : Confirmed by: Saul Norman MD 03-Jul-2018 15:54:27
--- NOTE | 2018-07-03 15:55 | EKG REPORT ---
SEVERITY:- ABNORMAL ECG - ATRIAL FIBRILLATION WITH RAPID V-RATE BORDERLINE T ABNORMALITIES, INFERIOR LEADS : Confirmed by: Saul Norman MD 03-Jul-2018 15:54:42
[2018-07-03 15:58] LABS: HEMATOCRIT 55.2 % (37.9-51.0); PLATELET COUNT 249 10^3/uL (150-450)
[2018-07-03 16:15] LABS: ALANINE AMINOTRANSFERASE 40 U/L (21-72); ALBUMIN 3.9 g/dL (3.5-5.0); ALKALINE PHOSPHATASE 53 U/L (38-126); ANION GAP 11 (5-19); ASPARTATE AMINO TRANSFERASE 34 U/L (17-59); BILIRUBIN,DIRECT 0.2 mg/dL (0.0-0.4); BILIRUBIN,TOTAL 0.5 mg/dL (0.2-1.3); BLOOD UREA NITROGEN 16 mg/dL (7-20); CALCIUM 9.2 mg/dL (8.4-10.2); CARBON DIOXIDE 20 mmol/L (22-30); CHLORIDE 112 mmol/L (98-107); CREATINE KINASE 118 U/L (55-170); GLUCOSE 122 mg/dL (75-110); POTASSIUM 3.8 mmol/L (3.6-5.0); SODIUM 142.9 mmol/L (137-145); TOTAL PROTEIN 6.3 g/dL (6.3-8.2)
--- NOTE | 2018-07-03 16:21 | RADIOLOGY REPORT (SQ) ---
EXAM DESCRIPTION: CHEST SINGLE VIEW COMPLETED DATE/TIME: 07/03/2018 4:06 pm REASON FOR STUDY: sob COMPARISON: 09/12/2015 TECHNIQUE: Single frontal radiographic view of the chest acquired. NUMBER OF VIEWS: One view. LIMITATIONS: None. FINDINGS: LUNGS AND PLEURA: No pneumothorax. No consolidation or pleural effusion. MEDIASTINUM AND HILAR STRUCTURES: Stable. HEART AND VASCULAR STRUCTURES: Stable. BONES: No acute findings. HARDWARE: None in the chest. OTHER: No other significant finding. IMPRESSION: NO ACUTE FINDINGS. TECHNICAL DOCUMENTATION: JOB ID: [id number] [place]-72 2010 [employer]- All Rights Reserved Reading location - IP/workstation name: [email or web address]
[2018-07-03] MEDS ORDERED: NORMAL SALINE 500 ML IV ONE (16:22)
[2018-07-03 16:27] LABS: CREATINE KINASE MB 0.65 ng/mL (<4.55); NT PRO BNP 192 pg/mL (5-900)
[2018-07-03 16:28] LABS: TROPONIN I < 0.012 ng/mL
--- NOTE | 2018-07-03 17:37 | PDOC H&P ---
History of Present Illness Admission Date/PCP: 07/03/18 17:21 History of Present Illness: QING BERMEO is a 58 year old male patient presented with chief complaint of palpitation and shortness of breath. Patient is a known case of atrial fibrillation for the last 16 years. He does not have other comorbidities. This is second visit to ER in 1 week. While in triage patient passed out and he was taken to the trauma room where he was resuscitated with IV fluids and Cardizem drip. Currently patient is awake alert oriented and symptom-free. Patient denies any fever, cough, nausea, vomiting, abdominal pain or urinary complaints. His primary quality control assistant Dr. Sun. Past Medical History Cardiac Medical History: Reports: Atrial Fibrillation Pulmonary Medical History: Reports: Chronic Obstructive Pulmonary Disease (COPD) Past Surgical History Past Surgical History: Reports: Appendectomy, Orthopedic Surgery - right elbow Social History Lives with: Spouse/Significant other Smoking Status: Never Smoker - Advance Directive Resuscitation Status: Full Code Family History Family History: Reviewed & Not Pertinent Parental Family History Reviewed: Yes Children Family History Reviewed: Yes Sibling(s) Family History Reviewed.: Yes Medication/Allergy Home Medications: Clindamycin HCl 450 mg PO TID 7 Days capsule 01/30/17 Baclofen [Baclofen 10 mg Tablet] 5 - 10 mg PO BID PRN #10 tablet 03/28/17 Naproxen 500 mg PO BID PRN #30 tablet 03/28/17 Ciprofloxacin HCl [Cipro 500 mg Tablet] 500 mg PO BID #20 tablet 05/21/17 Metronidazole [Flagyl 500 mg Tablet] 500 mg PO TID 10 Days #30 tablet 05/21/17 Allergies/Adverse Reactions: No Known Allergies Allergy (Verified 07/01/18 10:04) Review of Systems Constitutional: ABSENT: chills, fever(s), headache(s), weight gain, weight loss Eyes: ABSENT: visual disturbances Ears: ABSENT: hearing changes Cardiovascular: PRESENT: palpitations Respiratory: ABSENT: cough, hemoptysis Gastrointestinal: ABSENT: abdominal pain, constipation, diarrhea, hematemesis, hematochezia, nausea, vomiting Genitourinary: ABSENT: dysuria, hematuria Musculoskeletal: ABSENT: joint swelling Integumentary: ABSENT: rash, wounds Neurological: ABSENT: abnormal gait, abnormal speech, confusion, dizziness, focal weakness, syncope Psychiatric: ABSENT: anxiety, depression, homidical ideation, suicidal ideation Endocrine: ABSENT: cold intolerance, heat intolerance, polydipsia, polyuria Hematologic/Lymphatic: ABSENT: easy bleeding, easy bruising Physical Exam Vital Signs: Intake & Output 07/02/18 07/03/18 07/04/18 06:59 06:59 06:59 Intake Total 4 Balance 4 Weight 88.451 kg General appearance: PRESENT: no acute distress, well-developed, well-nourished Head exam: PRESENT: atraumatic, normocephalic Eye exam: PRESENT: conjunctiva pink, EOMI, PERRLA. ABSENT: scleral icterus Ear exam: PRESENT: normal external ear exam Mouth exam: PRESENT: moist, tongue midline Neck exam: ABSENT: carotid bruit, JVD, lymphadenopathy, thyromegaly Respiratory exam: PRESENT: clear to auscultation adalid. ABSENT: rales, rhonchi, wheezes Cardiovascular exam: PRESENT: RRR. ABSENT: diastolic murmur, rubs, systolic murmur Pulses: PRESENT: normal dorsalis pedis pul Vascular exam: PRESENT: normal capillary refill GI/Abdominal exam: PRESENT: normal bowel sounds, soft. ABSENT: distended, g uarding, mass, organolmegaly, rebound, tenderness Rectal exam: PRESENT: deferred Extremities exam: PRESENT: full ROM. ABSENT: calf tenderness, clubbing, pedal edema Neurological exam: PRESENT: alert, awake, oriented to person, oriented to place, oriented to time, oriented to situation, CN II-XII grossly intact. ABSENT: mo tor sensory deficit Psychiatric exam: PRESENT: appropriate affect, normal mood. ABSENT: homicidal ideation, suicidal ideation Skin exam: PRESENT: dry, intact, warm. ABSENT: cyanosis, rash Results Laboratory Results: 07/03/18 15:14 07/03/18 15:44 07/03/18 07/03/18 07/03/18 15:14 15:14 15:44 WBC 5.3 RBC 6.47 H Hgb 19.0 H Hct 55.2 H MCV 85 MCH 29.4 MCHC 34.5 RDW 13.8 Plt Count 249 Seg Neutrophils % 38.4 L Lymphocytes % 45.4 H Monocytes % 12.4 Eosinophils % 1.4 Basophils % 2.4 H Absolute Neutrophils 2.0 Absolute Lymphocytes 2.4 Absolute Monocytes 0.7 Absolute Eosinophils 0.1 Absolute Basophils 0.1 Sodium Cancelled 142.9 Potassium Cancelled 3.8 Chloride Cancelled 112 H Carbon Dioxide Cancelled 20 L Anion Gap Cancelled 11 BUN Cancelled 16 Creatinine Cancelled 0.74 Est GFR ( Amer) Cancelled > 60 Est GFR (Non-Af Amer) Cancelled > 60 Glucose Cancelled 122 H Calcium Cancelled 9.2 Magnesium Cancelled 1.9 Total Bilirubin Cancelled 0.5 AST Cancelled 34 ALT Cancelled 40 Alkaline Phosphatase Cancelled 53 Total Protein Cancelled 6.3 Albumin Cancelled 3.9 07/03/18 07/03/18 07/03/18 15:14 15:14 15:44 Creatine Kinase Cancelled 118 CK-MB (CK-2) Cancelled Troponin I Cancelled NT-Pro-B Natriuret Pep Cancelled 07/03/18 15:44 Creatine Kinase CK-MB (CK-2) 0.65 Troponin I < 0.012 NT-Pro-B Natriuret Pep 192 Impressions: Chest X-Ray 07/03/18 15:18 IMPRESSION: NO ACUTE FINDINGS. Assessment & Plan - Diagnosis (1) Syncope Is this a current diagnosis for this admission?: Yes Plan: Most probably due to his atrial fibrillation with RVR (2) Atrial fibrillation with RVR Is this a current diagnosis for this admission?: Yes Plan: We will continue his home medication and also I would like for him Cardizem extended release.
[2018-07-03] MEDS ORDERED: ACETAMINOPHEN 325 MG TABLET PO PRN (17:38)
[2018-07-03] MEDS ORDERED: ONDANSETRON HCL INJ/PF 4 MG/2 ML SDV IV PRN (17:38)
[2018-07-03] MEDS ORDERED: DILTIAZEM HCL 180 MG CAPSULE.CR PO ONE ×2 (17:41→21:00)
[2018-07-03] MEDS ORDERED: ENOXAPARIN SODIUM INJ 40 MG/0.4 ML DISP.SYRIN SUBCUT SCH (18:00)
[2018-07-03] MEDS ORDERED: LORAZEPAM 1 MG TABLET PO PRN (21:34)
[2018-07-03] MEDS: FAMOTIDINE 20 MG TABLET PO SCH (22:27)
[2018-07-03] MEDS ORDERED: GABAPENTIN 300 MG CAPSULE PO ONE (22:30)
--- NOTE | 2018-07-03 22:31 | EKG REPORT ---
SEVERITY:- ABNORMAL ECG - SINUS TACHYCARDIA ATRIAL TRIGEMINY WITH ABERRENCY : Confirmed by: Saul Norman MD 03-Jul-2018 22:30:57
[2018-07-04 07:30] LABS: ANION GAP 6 (5-19); BLOOD UREA NITROGEN 15 mg/dL (7-20); CALCIUM 8.6 mg/dL (8.4-10.2); CARBON DIOXIDE 22 mmol/L (22-30); CHLORIDE 114 mmol/L (98-107); GLUCOSE 105 mg/dL (75-110); POTASSIUM 4.3 mmol/L (3.6-5.0); SODIUM 141.5 mmol/L (137-145)
[2018-07-04] MEDS ORDERED: DILTIAZEM HCL 180 MG CAPSULE.CR PO SCH (10:00)
[2018-07-04] MEDS ORDERED: ASPIRIN 325 MG TABLET PO SCH (10:00)
[2018-07-04] MEDS ORDERED: GABAPENTIN 300 MG CAPSULE PO SCH (10:00)
[2018-07-04] MEDS: FAMOTIDINE 20 MG TABLET PO SCH (11:00)
--- NOTE | 2018-07-04 11:59 | PDOC DISCHARGE SUMMARY ---
General - Admit/Disc Date/PCP Admission Date/Primary Care Provider: 07/03/18 17:21 Discharge Date: 07/04/18 - Discharge Diagnosis (1) Syncope Is this a current diagnosis for this admission?: Yes (2) Atrial fibrillation with RVR Is this a current diagnosis for this admission?: Yes - Additional Information Resuscitation Status: Full Code Home Medications: Aspirin [Aspirin 325 mg Tablet] 325 mg PO DAILY 07/04/18 Dronedarone Hydrochloride [Multaq 400 Mg Tablet] 400 mg PO BID 07/04/18 Esomeprazole Magnesium [Nexium 24Hr] 20 mg PO DAILY 07/04/18 Gabapentin [Neurontin 300 mg Capsule] 300 mg PO Q8HP PRN 07/04/18 Naproxen [Naprosyn] 500 mg PO Q12 07/04/18 Oseltamivir Phosphate [Tamiflu 75 mg Capsule] 75 mg PO BID 07/04/18 History of Present Illness History of Present Illness: QING BERMEO is a 58 year old male patient presented with chief complaint of palpitation and shortness of breath. Patient is a known case of atrial fibrillation for the last 16 years. He does not have other comorbidities. This is second visit to ER in 1 week. While in triage patient passed out and he was taken to the trauma room where he was resuscitated with IV fluids and Cardizem drip. Currently patient is awake alert oriented and symptom-free. Patient denies any fever, cough, nausea, vomiting, abdominal pain or urinary complaints. His primary aluminum shingle roofer Dr. Sun. Hospital Course Hospital Course: QING BERMEO is a 58 year old male patient presented with chief complaint of palpitation and shortness of breath. Patient is a known case of atrial fibrillation for the last 16 years. He does not have other comorbidities. Patient has been treated with Cardizem drip which later stopped and switched to p.o. Cardizem. This morning I seen patient resting in bed comfortably he is not in pain or any form of distress. His vital signs are stable with a blood pressure of 104/72 and heart rate of 65. Patient does not have new complaint. Patient is not a candidate for anticoagulation with Deisy frandy, Xarelto or Coumadin since his GRACIA-Vas core is 1 but will continue to take aspirin. I will send him home with Cardizem extended release 180 mg once a day and patient advised to keep up his up upcoming appointment with his primary aluminum shingle roofer Dr. Sun. Physical Exam Vital Signs: Temp Pulse Resp BP Pulse Ox 97.8 F 65 16 104/72 96 07/04/18 07:29 07/04/18 07:29 07/04/18 07:29 07/04/18 07:29 07/04/18 07:29 Intake & Output 07/03/18 07/04/18 07/05/18 06:59 06:59 06:59 Intake Total 1625 Output Total 125 Balance 1500 Weight 83.3 kg General appearance: PRESENT: no acute distress, well-developed, well-nourished Head exam: PRESENT: atraumatic, normocephalic Eye exam: PRESENT: conjunctiva pink, EOMI, PERRLA. ABSENT: scleral icterus Ear exam: PRESENT: normal external ear exam Mouth exam: PRESENT: moist, tongue midline Neck exam: ABSENT: carotid bruit, JVD, lymphadenopathy, thyromegaly Respiratory exam: PRESENT: clear to auscultation adalid. ABSENT: rales, rhonchi, wheezes Cardiovascular exam: PRESENT: RRR. ABSENT: diastolic murmur, rubs, systolic murmur Pulses: PRESENT: normal dorsalis pedis pul Vascular exam: PRESENT: normal capillary refill GI/Abdominal exam: PRESENT: normal bowel sounds, soft. ABSENT: distended, guarding, mass, organolmegaly, rebound, tenderness Rectal exam: PRESENT: deferred Extremities exam: PRESENT: full ROM. ABSENT: calf tenderness, clubbing, pedal edema Neurological exam: PRESENT: alert, awake, oriented to person, oriented to place, oriented to time, oriented to situation, CN II-XII grossly intact. ABSENT: motor sensory deficit Psychiatric exam: PRESENT: appropriate affect, normal mood. ABSENT: homicidal ideation, suicidal ideation Skin exam: PRESENT: dry, intact, warm. ABSENT: cyanosis, rash Results Laboratory Results: 07/03/18 15:14 07/04/18 06:25 07/03/18 07/03/18 07/03/18 15:14 15:14 15:44 WBC 5.3 RBC 6.47 H Hgb 19.0 H Hct 55.2 H MCV 85 MCH 29.4 MCHC 34.5 RDW 13.8 Plt Count 249 Seg Neutrophils % 38.4 L Lymphocytes % 45.4 H Monocytes % 12.4 Eosinophils % 1.4 Basophils % 2.4 H Absolute Neutrophils 2.0 Absolute Lymphocytes 2.4 Absolute Monocytes 0.7 Absolute Eosinophils 0.1 Absolute Basophils 0.1 Sodium Cancelled 142.9 Potassium Cancelled 3.8 Chloride Cancelled 112 H Carbon Dioxide Cancelled 20 L Anion Gap Cancelled 11 BUN Cancelled 16 Creatinine Cancelled 0.74 Est GFR ( Amer) Cancelled > 60 Est GFR (Non-Af Amer) Cancelled > 60 Glucose Cancelled 122 H Calcium Cancelled 9.2 Magnesium Cancelled 1.9 Total Bilirubin Cancelled 0.5 AST Cancelled 34 ALT Cancelled 40 Alkaline Phosphatase Cancelled 53 Total Protein Cancelled 6.3 Albumin Cancelled 3.9 07/04/18 06:25 WBC RBC Hgb Hct MCV MCH MCHC RDW Plt Count Seg Neutrophils % Lymphocytes % Monocytes % Eosinophils % Basophils % Absolute Neutrophils Absolute Lymphocytes Absolute Monocytes Absolute Eosinophils Absolute Basophils Sodium 141.5 Potassium 4.3 Chloride 114 H Carbon Dioxide 22 Anion Gap 6 BUN 15 Creatinine 0.74 Est GFR ( Amer) > 60 Est GFR (Non-Af Amer) > 60 Glucose 105 Calcium 8.6 Magnesium Total Bilirubin AST ALT Alkaline Phosphatase Total Protein Albumin 07/03/18 07/03/18 07/03/18 15:14 15:14 15:44 Creatine Kinase Cancelled 118 CK-MB (CK-2) Cancelled Troponin I Cancelled NT-Pro-B Natriuret Pep Cancelled 07/03/18 15:44 Creatine Kinase CK-MB (CK-2) 0.65 Troponin I < 0.012 NT-Pro-B Natriuret Pep 192 Impressions: Chest X-Ray 07/03/18 15:18 IMPRESSION: NO ACUTE FINDINGS. Qualifiers - * PATIENT BEING DISCHARGED WITH ANY OF THE FOLLOWING DIAGNOSIS: No
[2018-07-04 12:13] VITALS: BP 106/64
== END 2018-07-04 13:40 | disposition home or self-care (01) ==
LOC: ER 15:05 → EH 17:21 → INTOOBSV 17:21 → 3S 19:00
PROVIDERS: ADMIT Internal Medicine; ATTEND Internal Medicine
DX: R55 Syncope and collapse (principal); I48.91 Unspecified atrial fibrillation; R06.02 Shortness of breath; Z23 Encounter for immunization; Z79.82 Long term (current) use of aspirin; Z79.899 Other long term (current) drug therapy; Z90.49 Acquired absence of other specified parts of digestive tract
CPT/HCPCS: 93005; 96376; 99285; 96365; 96366; 36415 ×2; 82553; 82550; 83735; 85025; 80048; 80053; 84484; 83880; 71045; 90686; 93010; G0378 ×3; J3490 ×2; J1650; J7030; J7040

== ENCOUNTER 2018-07-27 19:28 | Emergency (ER) | payer BC ==
[2018-07-27] MEDS ORDERED: DILTIAZEM HCL INJ 25 MG/5 ML VIAL IV ONE (20:01)
--- NOTE | 2018-07-27 20:03 | ER Document Report ---
ED General - General Chief Complaint: Irregular Pulse Stated Complaint: AFFIB Time Seen by Provider: 07/27/18 20:00 Primary Care Provider: KAE RUSSO PA-C [Primary Care Provider] - Follow up as needed Mode of Arrival: Ambulatory Information source: Patient Notes: This is a 58-year-old man with a history of atrial fibrillation who presents to the emergency room with palpitations and fast heartbeat. He is noted to be in A. fib in triage. He denies any chest discomfort at this time. TRAVEL OUTSIDE OF THE [place] IN LAST 30 DAYS: No - HPI Onset: Just prior to arrival Onset/Duration: Sudden Quality of pain: Other Severity: Moderate - Palpitations Pain Level: 3 Associated symptoms: denies: Chest pain, Fever, Shortness of breath Exacerbated by: Denies Relieved by: Denies Similar symptoms previously: Yes Recently seen / treated by doctor: Yes - Related Data Allergies/Adverse Reactions: No Known Allergies Allergy (Verified 07/01/18 10:04) Past Medical History - General Information source: Patient - Social History Smoking Status: Never Smoker Cigarette use (# per day): No Chew tobacco use (# tins/day): No Frequency of alcohol use: None Drug Abuse: None Lives with: Family Family History: Reviewed & Not Pertinent Patient has suicidal ideation: No Patient has homicidal ideation: No - Past Medical History Cardiac Medical History: Reports: Hx Atrial Fibrillation Pulmonary Medical History: Reports: Hx COPD Renal/ Medical History: Denies: Hx Peritoneal Dialysis Past Surgical History: Reports: Hx Appendectomy, Hx Orthopedic Surgery - right elbow Review of Systems - Review of Systems Constitutional: denies: Chills, Fever EENT: No symptoms reported Cardiovascular: Palpitations, Heart racing. denies: Chest pain, Syncope Respiratory: No symptoms reported Gastrointestinal: No symptoms reported Genitourinary: No symptoms reported Male Genitourinary: No symptoms reported Musculoskeletal: No symptoms reported Skin: No symptoms reported Hematologic/Lymphatic: No symptoms reported Neurological/Psychological: No symptoms reported Physical Exam - Vital signs Vitals: Temp Pulse Resp BP Pulse Ox 97.5 F 69 20 149/107 H 97 07/27/18 19:33 07/27/18 19:33 07/27/18 19:33 07/27/18 19:33 07/27/18 19:33 Notes: Physical exam: GENERAL: Is alert and oriented x3, no acute distress. He is quite tachycardic. He is hypertensive. HEAD: Atraumatic, normocephalic. EYES: Pupils equal round and reactive to light, extraocular movements intact, sclera anicteric, conjunctiva are normal. ENT: TMs normal, nares patent, oropharynx clear without exudates. Moist mucous membranes. NECK: Normal range of motion, supple without obvious mass or JVD. LUNGS: Breath sounds clear to auscultation bilaterally and equal. No wheezes rales or rhonchi. HEART: The cardia, irregularly irregular. ABDOMEN: Soft, normoactive bowel sounds. No tenderness to palpation. No guarding, no rebound. No masses appreciated. EXTREMITIES: Normal range of motion, no pitting or edema. No clubbing or cyanosis. NEUROLOGICAL: Cranial nerves II through XII grossly intact. Normal speech, movi ng all extremities. PSYCH: Normal mood, normal affect. SKIN: Warm, Dry, normal turgor, no rashes or lesions noted. Course - Re-evaluation Re-evalutation: 07/27/18 21:[address] Sun who will follow patient up in the office. She has converted to normal sinus rhythm. - Vital Signs Vital signs: Temp Pulse Resp BP Pulse Ox 97.5 F 69 13 101/65 95 07/27/18 19:33 07/27/18 19:33 07/27/18 21:40 07/27/18 21:35 07/27/18 21:40 - Laboratory Result Diagrams: 07/27/18 19:54 07/27/18 19:54 Laboratory results interpreted by me: 07/27/18 07/27/18 19:54 19:54 RDW 14.2 H Creatine Kinase 216 H - EKG Interpretation by Me Rhythm: A.Fib - EKG shows atrial fibrillation with a ventricular rate of 150, no acute ST-T wave changes Discharge - Discharge Clinical Impression: Atrial fibrillation with a rapid ventric Condition: Stable Disposition: HOME, SELF-CARE Additional Instructions: As we discussed, I did speak to Dr. Sun and let them know you are in the emergency room. I want you to call the office tomorrow for follow-up. He may be starting a new medicine with you in addition to the metoprolol. A copy of today's labs when you see him in the office. Otherwise return to the emergency room for any chest pain, palpitations or any concerns or getting worse. Referrals: KAE URSSO PA-C [Primary Care Provider] - Follow up as needed
[2018-07-27 20:13] LABS: ABSOLUTE BASOPHILS # (AUTO) 0.1 10^3/uL (0.0-0.2); ABSOLUTE EOSINOPHILS # (AUTO) 0.2 10^3/uL (0.0-0.6); ABSOLUTE LYMPHOCYTES (AUTO) 2.1 10^3/uL (0.5-4.7); ABSOLUTE MONOCYTES (AUTO) 0.5 10^3/uL (0.1-1.4); ABSOLUTE NEUT (AUTO) 4.5 10^3/uL (1.7-8.2); BASOPHILS % (AUTO) 1.2 % (0-2); EOSINOPHILS % (AUTO) 3.1 % (0-6); HEMATOCRIT 47.1 % (37.9-51.0); HEMOGLOBIN 16.3 g/dL (13.5-17.0); LYMPHOCYTES % (AUTO) 28.3 % (13-45); MEAN CORPUSCULAR HEMOGLOBIN 29.7 pg (27.0-33.4); MEAN CORPUSCULAR HGB CONC 34.6 g/dL (32.0-36.0); MEAN CORPUSCULAR VOLUME 86 fl (80-97); MONOCYTES % (AUTO) 7.4 % (3-13); PLATELET COUNT 248 10^3/uL (150-450); RED BLOOD COUNT 5.49 10^6/uL (4.35-5.55); RED CELL DISTRIBUTION WIDTH 14.2 % (11.5-14.0); TOTAL CELLS COUNTED % (AUTO) 100 %; WHITE BLOOD COUNT 7.4 10^3/uL (4.0-10.5)
[2018-07-27 20:33] LABS: ALANINE AMINOTRANSFERASE 35 U/L (21-72); ALBUMIN 3.9 g/dL (3.5-5.0); ALKALINE PHOSPHATASE 59 U/L (38-126); ANION GAP 9 (5-19); ASPARTATE AMINO TRANSFERASE 32 U/L (17-59); BILIRUBIN,DIRECT 0.2 mg/dL (0.0-0.4); BILIRUBIN,TOTAL 0.5 mg/dL (0.2-1.3); BLOOD UREA NITROGEN 20 mg/dL (7-20); CALCIUM 9.7 mg/dL (8.4-10.2); CARBON DIOXIDE 24 mmol/L (22-30); CHLORIDE 107 mmol/L (98-107); CREATINE KINASE 216 U/L (55-170); GLUCOSE 104 mg/dL (75-110); POTASSIUM 4.3 mmol/L (3.6-5.0); SODIUM 140.2 mmol/L (137-145); TOTAL PROTEIN 6.7 g/dL (6.3-8.2)
[2018-07-27 20:42] LABS: CREATINE KINASE MB 1.76 ng/mL (<4.55)
[2018-07-27 20:44] LABS: TROPONIN I < 0.012 ng/mL
[2018-07-27 20:48] LABS: FREE T3 4.75 pg/mL (2.77-5.27); FREE T4 (FREE THYROXINE) 1.1 ng/dL (0.78-2.19)
[2018-07-27] MEDS ORDERED: NORMAL SALINE 1000 ML 1,000 ML IV ONE (20:58)
[2018-07-27] MEDS ORDERED: DILTIAZEM HCL/D5W 125 MG/125 ML RTUINJ IV PRN (20:58)
[2018-07-27 21:01] LABS: THYROID STIMULATING HORMONE 2.02 uIU/mL (0.47-4.68)
[2018-07-27 21:44] VITALS: BP 101/65
--- NOTE | 2018-07-27 23:30 | EKG REPORT ---
SEVERITY:- ABNORMAL ECG - ATRIAL FIBRILLATION, V-RATE 105-[address] DEPRESSION, INFERIOR LEADS : Confirmed by: Toshia Cole 27-Jul-2018 23:29:48
== END 2018-07-27 22:07 | disposition home or self-care (01) ==
LOC: ER 19:28
DX: I48.91 Unspecified atrial fibrillation (principal); J44.9 Chronic obstructive pulmonary disease, unspecified
CPT/HCPCS: 93005; 96376; 99285; 96365; 36415; 84439; 82553; 82550; 83735; 84443; 85025; 80053; 84484; 84481; 93010; J3490 ×2; J7030